=== PATIENT | female | born 1990 | race Caucasian/White ===

== ENCOUNTER 2023-09-18 16:10 | Emergency (ER) | payer BC ==
[2023-09-18] MEDS ORDERED: Aspirin 81 MG Tab.Chew PO ONE (17:03)
[2023-09-18 17:18] LABS: BASOPHILS ABSOLUTE AUTO 0.05 K/uL (0.00-0.10); BASOPHILS PERCENT AUTO 0.7 % (0.1-1.3); EOSINOPHILS ABSOLUTE AUTO 0.19 K/uL (0.00-0.40); EOSINOPHILS PERCENT AUTO 2.7 % (0.0-5.4); HEMATOCRIT 40.1 % (34.3-46.0); HEMOGLOBIN 13.7 g/dL (11.2-15.5); IMMATURE GRAN PERCENT AUTO 0.3 % (0.0-0.7); LYMPHOCYTES ABSOLUTE AUTO 1.78 K/uL (0.8-3.3); LYMPHOCYTES PERCENT AUTO 25.5 % (11.4-47.7); MEAN CORPUSCULAR HEMOGLOBIN 29.7 pg (31.6-35.5); MEAN CORPUSCULAR HGB CONC 34.2 g/dL (31.6-35.5); MONOCYTES ABSOLUTE AUTO 0.83 K/uL (0.20-0.90); MONOCYTES PERCENT AUTO 11.9 % (3.3-12.6); NEUTROPHILS ABSOLUTE AUTO 4.12 K/uL (1.0-7.6); NEUTROPHILS PERCENT AUTO 58.9 % (40.0-78.1); PLATELET COUNT,PLT 241 K/uL (130-375); RED BLOOD CELL COUNT 4.61 M/uL (3.77-5.24)
[2023-09-18 17:19] LABS: IMMATURE GRAN ABSOLUTE AUTO 0.02 K/uL (0.00-0.23)
[2023-09-18 17:44] LABS: CALCIUM 8.7 mg/dL (8.5-10.1); EST CRCL DRUG DOSING (CG) 79.21 mL/min; POTASSIUM,K 3.9 mmol/L (3.6-5.2); TROPONIN I HIGH SENSITIVITY 4.3 pg/mL (<=60.3)
[2023-09-18 17:47] LABS: ANION GAP 14.9 mmol/L (5.0-14.0)
== END 2023-09-18 18:28 | disposition home or self-care (01) ==
LOC: JP.ED 16:10
DX: R07.89 Other chest pain (principal); F17.200 Nicotine dependence, unspecified, uncomplicated; Z91.041 Radiographic dye allergy status; Z91.013 Allergy to seafood; Z79.899 Other long term (current) drug therapy
CPT/HCPCS: 36415; 71045; 71045-26; 80048; 84484; 85025; 93005; 93010; 99283; 99285